=== PATIENT | female | born 1975 ===

== ENCOUNTER 2022-08-07 05:56 | Day surgery (SDC) | payer OTHER ==
[~2022-08-07 05:56] MED LIST: COZAAR25 MG PO
[2022-08-07] MEDS ORDERED: IBU600 MG PO (09:45)
[2022-08-07] MEDS ORDERED: PERCOCET 5-3251 EACH PO (09:45)
== END 2022-08-07 11:50 | disposition home or self-care (01) ==
LOC: CIR.AMB 05:56
PROVIDERS: ATTEND Specialist
DX: D27.0 Benign neoplasm of right ovary (principal); N83.8 Other noninflammatory disorders of ovary, fallopian tube and broad ligament; I10 Essential (primary) hypertension; Z88.0 Allergy status to penicillin; Z91.013 Allergy to seafood; Z20.822 Contact with and (suspected) exposure to COVID-19